=== PATIENT | female | born 1940 | race Hispanic/Latino ===

== ENCOUNTER 2024-08-14 17:23 | Emergency (ER) | payer OTHER ==
[~2024-08-14] VITALS: Ht 162.6 cm; Wt 72.6 kg
[2024-08-14 18:19] LABS: SARS-CoV-2, RNA, NAAT NEGATIVE SARS CoV-2 (NEGATIVE)
[2024-08-14 18:22] LABS: BASOPHILS # (AUTO) 0.03 K/uL (0.00-0.20); BASOPHILS % (AUTO) 0.6 % (0.0-5.0); EOSINOPHILS # (AUTO) 0.01 K/uL (0.00-0.70); EOSINOPHILS % (AUTO) 0.2 % (0.0-8.0); HEMATOCRIT 36.9 % (36-48); IMMATURE GRANULOCYTE ABSOLUTE 0.02 K/uL (0-1); LYMPHOCYTES # (AUTO) 0.7 K/uL (1.0-4.8); LYMPHOCYTES % (AUTO) 14.5 % (21.0-51.0); MEAN CORPUSCULAR HGB CONC 32.5 g/dL (32.0-36.0); MEAN CORPUSCULAR VOLUME 92.3 fL (79-99); MONOCYTES # (AUTO) 0.4 K/uL (0.1-1.0); MONOCYTES % (AUTO) 8.4 % (3.0-13.0); NEUTROPHILS # (AUTO) 3.8 K/uL (1.8-7.7); NEUTROPHILS % (AUTO) 75.9 % (40.0-77.0); PLATELET COUNT (AUTO) 197 K/uL (130-400); RED CELL DISTRIBUTION WIDTH 14.1 % (11.0-15.5)
[2024-08-14 18:23] LABS: INFLUENZA TYPE A Negative For Type A (NEGATIVE); INFLUENZA TYPE B Negative For Type B (NEGATIVE)
--- NOTE | 2024-08-14 18:26 | NUR ---
SPOKE TO DR NAGEL AND GAVE HER FAX NUMBER OF [phone] TO FAX LAB RESULTS SHE STATED PATIENT HAD A DDIMER OF 955 PATIENT RESTING IN BED, DAUGHTER AT BEDSIDE
[2024-08-14 18:32] LABS: CREATININE 0.8 mg/dL (0.5-1.0); INR 0.98 (0.85-1.15); POTASSIUM 4.1 mmol/L (3.5-5.1); PROTHROMBIN TIME 10.4 SEC (9.6-11.6)
[2024-08-14 18:33] LABS: PARTIAL THROMBOPLASTIN TIME 26.5 SEC (26.3-35.5)
[2024-08-14] MEDS ORDERED: IOHEXOL-350 75 ML VIAL IV ONE (19:28)
--- NOTE | 2024-08-14 19:47 | ERN ---
General Chief Complaint: Abnormal Labs Stated Complaint: SENT BY PHY Time Seen by MD: 17:29 Time Seen by Midlevel: 17:29 Source: patient History of Present Illness Initial Comments 84-year-old female who presents to the emergency department referred from PCP's office due to abnormal labs. Per daughter patient's D-dimer was elevated in the office and was referred to the ER for further evaluation. Patient reports shortness of breath, cough, congestion but denies any chest pain, abdominal pain, vomiting or further associated symptoms. PMHx DM, HTN Allergies: Coded Allergies: No Known Drug Allergies (Unverified Allergy, Unknown, 08/14/24) Home Meds Active Scripts Albuterol Sulfate (Albuterol Sulfate) 2.5 Mg/3 Ml (0.083 %) Vial.neb, 1 VIAL NEB Q4HPRN PRN for wheezing, #150 ML 0 Refills Prov:KEY NAVARRO 08/14/24 Past Medical History Past Medical History: Diabetes-Type II Past Surgical History: Other Surgical History Other: LEFT HIP, LEFT ARM ROS Dictation Constitutional: Negative for fever,chills, and weight loss Eyes: Negative for injury, pain,redness, and discharge ENT: Positive for congestion Negative for injury,pain or swelling Cardiovascular: Negative for chest pain, palpitations, and edema Respiratory: Positive for SOB, cough Negative for wheezing Abdomen/GI: Negative for abdominal pain, nausea, vomiting, diarrhea, and cons tipation Back: Negative for injury and pain : Negative for painful urination, bleeding or discharge MS/Extremity: Negative for injury and deformity Skin: Negative for rash, and discoloration Neuro: Negative for headache, weakness, numbness, tingling, and seizure Psych: Negative for suicide ideation, homicidal ideation, and hallucinations Physical Exam Physical Exam Dictation General: awake, alert, no acute distress Head/Face: Normocephalic, atraumatic Eyes: PERRL, EOMI, normal conjunctiva ENT: oral cavity clear, oral mucosa moist Neck: Supple, normal range of motion Cardiovascular: RRR, normal S1/S2 Respiratory: CTAB, no respiratory distress, no rales or wheezes. Mild labored breathing noted with exertion. Abdomen: Soft, non-tender, non-distended, no guarding or rebound. Skin: Warm, dry, normal turgor, no rash MS/Extremity: Pulses equal, no cyanosis, neurovascular intact, FROM Neuro: COAx4, GCS 15, strength 5/5, CN 2-12 intact, normal cerebellar exam, normal gait Psych: Normal behavior, mood, and affect normal Results Laboratory and Microbiology Lab and Micro Result Laboratory Tests Test 08/14/24 17:24 08/14/24 18:05 Influenza Type A Antigen Negative For Type A Influenza Type B Antigen Negative For Type B SARS-CoV-2, RNA, NAAT NEGATIVE SARS CoV-2 White Blood Count 5.0 K/uL (4.8-10.8) Red Blood Count 4.00 MIL/uL (4.00-5.50) Hemoglobin 12.0 g/dL (12.0-16.0) Hematocrit 36.9 % (36-48) Mean Corpuscular Volume 92.3 fL (79-99) Mean Corpuscular Hemoglobin 30.0 pg (27.0-33.0) Mean Corpuscular Hemoglobin Concent 32.5 g/dL (32.0-36.0) Red Cell Distribution Width 14.1 % (11.0-15.5) Platelet Count 197 K/uL (130-400) Mean Platelet Volume 9.2 fL (7.5-10.5) Immature Granulocyte % (Auto) 0.4 % (0-1) Neutrophils (%) (Auto) 75.9 % (40.0-77.0) Lymphocytes (%) (Auto) 14.5 % (21.0-51.0) L Monocytes (%) (Auto) 8.4 % (3.0-13.0) Eosinophils (%) (Auto) 0.2 % (0.0-8.0) Basophils (%) (Auto) 0.6 % (0.0-5.0) Neutrophils # (Auto) 3.8 K/uL (1.8-7.7) Lymphocytes # (Auto) 0.7 K/uL (1.0-4.8) L Monocytes # (Auto) 0.4 K/uL (0.1-1.0) Eosinophils # (Auto) 0.01 K/uL (0.00-0.70) Basophils # (Auto) 0.03 K/uL (0.00-0.20) Absolute Immature Granulocyte (auto 0.02 K/uL (0-1) Nucleated Red Blood Cells 0.0 % (0.0-0.19) Prothrombin Time 10.4 SEC (9.6-11.6) Prothromb Time International Ratio 0.98 (0.85-1.15) Activated Partial Thromboplast Time 26.5 SEC (26.3-35.5) D-Dimer Quantitative (PE/DVT) 810 ng/mL (0-500) *H Sodium Level 132 mmol/L (136-145) L Potassium Level 4.1 mmol/L (3.5-5.1) Chloride Level 97 mmol/L (101-111) L Carbon Dioxide Level 26 mmol/L (21-32) Blood Urea Nitrogen 12 mg/dL (7-18) Creatinine 0.8 mg/dL (0.5-1.0) Glomerular Filtration Rate Calc 74 mL/min (>90) Random Glucose 179 mg/dL (70-105) H Total Calcium 9.0 mg/dL (8.5-10.1) Troponin I High Sensitivity 9 ng/L (4-50) B-Type Natriuretic Peptide 100 pg/mL (0-100) Labs Reviewed?: Yes EKG/XRAY/US/CT/MRI EKG Comment Date: 12/08/2024 Time: 19:05 Rate: 89 EKG interpretation: Sinus rhythm, low voltage precordial leads, no STEMI Reviewed by ED Attending X-RAY Comment REASON: SOB ORDERING PHYSICIAN: KEY NAVARRO PROCEDURE: CXR1VW - CHEST 1VW CHEST 1VW HISTORY: Shortness of breath COMPARISON: None FINDINGS: A frontal projection of the chest was obtained. Mild bilateral pulmonary infiltrates are seen may be related to mild pulmonary vascular congestion with possible superimposed pneumonitis. The heart is borderline enlarged. Degenerative changes are seen. No evidence of aortic calcification is seen. IMPRESSION: 1. Mild bilateral pulmonary infiltrates are seen may be related to mild pulmonary vascular congestion with possible superimposed pneumonitis. DICTATED BY: OSMANI ONEAL MD DATE: 08/14/242104 CT Scan Comment REASON: Elevated D-dimer, SOB ORDERING PHYSICIAN: KEY NAVARRO PROCEDURE: CHES PE - CT CHEST PE PROTOCOL WWO CONT CT CHEST PE PROTOCOL WWO CONT HISTORY: Elevated d-dimer, shortness of breath COMPARISON: None TECHNIQUE: CT angiography of the chest was performed. The study was performed using angiographic technique with maximum intensity projection reconstruction images. Patient was given 75 cc of Omnipaque through intravenous route. FINDINGS: No CT evidence of filling defect is seen to suggest pulmonary embolus. No CT evidence of aortic dissection is seen. Mild interstitial fibrotic changes are seen. No evidence of parenchymal disease is seen. No CT evidence of pleural effusion or pericardial effusion is seen. The heart is enlarged. Coronary arterial calcifications are seen. Post cholecystectomy changes are seen. Liver is enlarged with fatty changes measuring 16 cm. No evidence of adrenal mass is seen. Degenerative changes of the spine are noted. IMPRESSION: 1. No CT evidence of acute pulmonary embolus is seen. CT was performed with one or more following dose reduction techniques: automated exposure control, adjustment of the mA and kv according to patient's size, or use of a iterative reconstruction technique. DICTATED BY: OSMANI ONEAL MD DATE: 08/14/242031 [facility] MDM: Differential diagnosis: New onset COPD, CHF, pulmonary embolism Rationale: 84-year-old female who presents to the emergency department referred from PCP's office due to abnormal labs. Per daughter patient's D-dimer was elevated in the office and was referred to the ER for further evaluation. Patient reports shortness of breath, cough, congestion but denies any chest pain, abdominal pain, vomiting or further associated symptoms. PMHx DM, HTN Per physical examination patient is in no acute distress, mild labored breathing noted with exertion, O2 saturations at 100% on room air. Labs obtained indicating no elevated WBCs, troponin within normal limits, BNP within normal limits. D-dimer elevated to 810 therefore CTA obtained. Influenza and SARs negative. Chest x-ray indicates pulmonary infiltrates related to pulmonary vascular congestion. Chest CT reports no acute pulmonary embolism, mild interstitial fibrotic changes, mild cardiomegaly. Patient received DuoNeb treatment in the ED. Patient and daughter were educated on findings and diagnosis. Admission was offered to patient and daughter however daughter stated she was comfortable taking mother home and having her follow up with PCP. Albuterol prescribed for outpatient treatment. Advised to follow up with PCP. Return to the emergency department if any worsening symptoms. Patient verbalized understanding. Patient stable for discharge. ED course delayed due to CTA. There are no social concerns with this patient. I independently interpreted the test that were performed, results were reviewed by me and considered findings on radiology if ordered. Medical management and examination interpretation discussions were had by me with other qualified healthcare professionals as indicated for the patient's care. ED Course Orders Procedure Category Date Status Time Cbc With Differential LAB 08/14/24 Complete 17:35 Basic Metabolic Panel LAB 08/14/24 Complete 17:35 Pt And Ptt LAB 08/14/24 Complete 17:35 Covid Rna Naat LAB 08/14/24 Complete 17:51 Influenza Type A & B, LAB 08/14/24 Complete Rapid 17:51 Chest 1vw RAD 08/14/24 Resulted 18:02 B-Type Natriuretic LAB 08/14/24 Complete Peptide 18:02 Troponin I High LAB 08/14/24 Complete Sensitivity 18:02 12 Lead Ekg Tracing- EKG 08/14/24 Logged Technical 18:02 D-Dimer LAB 08/14/24 Complete 18:20 Ct Chest Pe Protocol CT 08/14/24 Resulted Wwo Cont 19:15 Iohexol (Omnipaque) PHA 08/14/24 Complete 19:28 Ipratropium/Albuterol PHA 08/14/24 Complete Neb (Duoneb) 21:30 Current Medications Medications (Trade) Dose Ordered Sig/Kalpesh Route PRN Reason Start Time Stop Time Status Last Admin Dose Admin Albuterol (DUOneb) 1 udvial ONCE ONCE IH 08/14/24 21:30 08/14/24 21:40 DC 08/14/24 21:48 Iohexol (Omnipaque) 75 ml STK-MED ONCE IV 08/14/24 19:28 08/14/24 19:28 DC Vital Signs Date Time Temp Pulse Resp B/P (MAP) Pulse Ox O2 Delivery O2 Flow Rate FiO2 08/14/24 21:05 99.1 90 16 167/72 99 Room Air* 0 21 08/14/24 20:10 90 16 170/79 96 Room Air* 0 21 08/14/24 19:35 99.9 95 16 185/82 99 Room Air* 0 08/14/24 18:28 99.9 95 16 148/80 99 Room Air* 0 21 08/14/24 17:33 100.4 95 20 169/91 99 0 DX & DISP Disposition: Discharge Departure Impression: Primary Impression: Dyspnea on exertion Additional Impression: Elevated d-dimer Condition: Stable Scripts Albuterol Sulfate (Albuterol Sulfate) 2.5 Mg/3 Ml (0.083 %) Vial.neb 1 VIAL NEB Q4HPRN PRN for wheezing, #150 ML 0 Refills Prov: KEY NAVARRO 08/14/24 Additional Instructions: Discharge home. Rest. Follow up with primary care DrMadi in 24 hours. Return to the ER for any acute changes or worsening symptoms. If any medications were prescribed take as directed. Okay to continue home medications unless otherwise discussed during your visit in the emergency room today. Patient was also advised to follow-up with primary care physician in 1 to 2 days for continued monitoring. Referrals: VITA NOGUERA MD (PCP) I performed the substantive portion of the visit. I have reviewed and personally made and approve the management plan that is documented in the notes by myself or the VINNY. I acknowledge full responsibility for the patient's management plan. KEY NAVARRO Aug 14, 2024 19:47
--- NOTE | 2024-08-14 20:41 | HMCIMG ---
CT CHEST PE PROTOCOL WWO CONT HISTORY: Elevated d-dimer, shortness of breath COMPARISON: None TECHNIQUE: CT angiography of the chest was performed. The study was performed using angiographic technique with maximum intensity projection reconstruction images. Patient was given 75 cc of Omnipaque through intravenous route. FINDINGS: No CT evidence of filling defect is seen to suggest pulmonary embolus. No CT evidence of aortic dissection is seen. Mild interstitial fibrotic changes are seen. No evidence of parenchymal disease is seen. No CT evidence of pleural effusion or pericardial effusion is seen. The heart is enlarged. Coronary arterial calcifications are seen. Post cholecystectomy changes are seen. Liver is enlarged with fatty changes measuring 16 cm. No evidence of adrenal mass is seen. Degenerative changes of the spine are noted. IMPRESSION: 1. No CT evidence of acute pulmonary embolus is seen. CT was performed with one or more following dose reduction techniques: automated exposure control, adjustment of the mA and kv according to patient's size, or use of a iterative reconstruction technique.
--- NOTE | 2024-08-14 21:09 | HMCIMG ---
CHEST 1VW HISTORY: Shortness of breath COMPARISON: None FINDINGS: A frontal projection of the chest was obtained. Mild bilateral pulmonary infiltrates are seen may be related to mild pulmonary vascular congestion with possible superimposed pneumonitis. The heart is borderline enlarged. Degenerative changes are seen. No evidence of aortic calcification is seen. IMPRESSION: 1. Mild bilateral pulmonary infiltrates are seen may be related to mild pulmonary vascular congestion with possible superimposed pneumonitis.
[2024-08-14 21:48] VITALS: PULSE 84; RESP 20
[2024-08-14] MEDS: IpraTROPium/alBUTERol SULFATE 3 ML SOLUTION IH ONE (21:48)
[2024-08-14] MEDS ORDERED: ALBU2.5V2 NEB (21:56)
[2024-08-14 22:14] VITALS: BP 161/71; PULSE 79; RESP 20; TEMP 98.7; O2SAT 99
--- NOTE | 2024-08-15 07:10 | EKG ---
[facility] Test Date: 2024-08-14 Test Time: 19:05:09 Pat Name: DARLENE ROSARIO Department: [facility] Room: Gender: F Rehabilitation Team Lead: [id number] : 1940 Requested By: KEY NAVARRO Order Number: [id number] Reading MD: Martín Hernandez Measurements Intervals [place] Rate: 89 P: -7 [place]: 162 QRS: -21 QRSD: 76 T: 4 QT: 361 QTc: 440 Interpretive Statements Sinus rhythm Low voltage, precordial leads No previous ECG available for comparison Electronically Signed On 08-15-2024 14:48:32 [employer] by Martín Hernandez Please click the below link to view image of tracing.
== END 2024-08-14 22:15 | disposition home or self-care (01) ==
LOC: EDH 17:23
DX: R06.09 Other forms of dyspnea (principal); R79.1 Abnormal coagulation profile; E11.9 Type 2 diabetes mellitus without complications; I10 Essential (primary) hypertension; Z20.822 Contact with and (suspected) exposure to COVID-19; Z79.899 Other long term (current) drug therapy; Z98.890 Other specified postprocedural states
CPT/HCPCS: 99285; 71270; 71045; 87635; 84484; 80048; 83880; 85025; 85378; 85610; 85730; 87804 ×2; 36415; 93005; 94640; Q9967